=== PATIENT | male | born 1940 | race Two or more races ===

== ENCOUNTER 2023-01-12 17:23 | Emergency (ER) | payer MEDICARE, OTHER ==
[~2023-01-12] VITALS: Ht 162.6 cm; Wt 71.8 kg
[2023-01-12 18:19] LABS: Basophils # (auto) 0 10 ^3/uL (0-0.2); Basophils % (auto) 0.6 % (0.0-2.0); Eosinophils # (auto) 0.1 10 ^3/uL (0-0.8); Eosinophils % (auto) 1.7 % (0.0-7.0); Hemoglobin 15.4 g/dL (13.5-17.5); Lymphocytes # (auto) 1.5 10 ^3/uL (0.4-5.4); Lymphocytes % (auto) 33.9 % (10.0-50.0); Mean Corpuscular Hemoglobin 33.4 pg (28.0-32.0); Mean Corpuscular Volume 95.4 fL (80.0-100.0); Monocytes # (auto) 0.5 10 ^3/uL (0-1.3); Monocytes % (auto) 12.2 % (0.0-12.0); Neutrophils # (auto) 2.3 10 ^3/uL (1.6-8.6); Neutrophils % (auto) 51.6 % (37.0-80.0); Red Blood Cells 4.61 10^6/uL (4.5-5.90); Red Cell Distribution Width 13.2 % (11.8-14.3); White Blood Cell 4.4 10^3/uL (4.4-10.8)
[2023-01-12 19:00] LABS: Albumin 3.7 g/dL (3.4-5.0); Calcium 8.6 mg/dL (8.5-10.1); Potassium 4.1 mmol/L (3.5-5.1)
[2023-01-12 19:04] LABS: BUN/Creatinine Ratio 9.9 (10.0-20.0); Bilirubin, Total 0.6 mg/dL (0.2-1.0)
[2023-01-12 21:18] VITALS: BP 161/71
== END 2023-01-12 21:35 | disposition home or self-care (01) ==
LOC: ER 17:35
DX: S80.02XA Contusion of left knee, initial encounter (principal); S80.01XA Contusion of right knee, initial encounter; S50.312A Abrasion of left elbow, initial encounter; R07.89 Other chest pain; R42 Dizziness and giddiness; K21.9 Gastro-esophageal reflux disease without esophagitis; E78.5 Hyperlipidemia, unspecified; W18.39XA Other fall on same level, initial encounter; Y93.89 Activity, other specified; Y92.89 Other specified places as the place of occurrence of the external cause; Y99.8 Other external cause status
CPT/HCPCS: 36415; 71046; 73120; 73560; 80053; 84484; 85025; 93005; 96361